=== PATIENT | male | born 1965 | race Caucasian/White ===

== ENCOUNTER → 2024-06-24 11:54 | Outpatient (REF) | payer BC, SELFPAY | LOC: HWRAD 11:54 | PROVIDERS: ATTENDING PHYSICIAN Family Medicine | DX: J45.909 Unspecified asthma, uncomplicated (principal); R05.9 Cough, unspecified; R93.89 Abnormal findings on diagnostic imaging of other specified body structures | CPT/HCPCS: 71046 ==

== ENCOUNTER 2024-06-26 19:35 | Emergency (ER) | payer BC, SELFPAY ==
[2024-06-26 19:38] VITALS: BP 169/84
[2024-06-26] MEDS: KEFLEX 500 MG PO (21:13)
[2024-06-26] MEDS: BACTRIM DS 800 MG/160 MG 2 TABLET PO (21:13)
[2024-06-26 21:32] LABS: Body Fluid Mononuclear 15.1 %; Body Fluid Polymorphonuclear 84.9 %; Body Fluid WBC 6955 /CUMM
[2024-06-26 21:40] VITALS: BP 176/111
[2024-06-26 21:40] LABS: Body Fluid Second Tech FB
--- NOTE | 2024-06-26 21:40 | ED.GENMED ---
History of Present Illness
General
Chief Complaint: Skin Problem
Source: patient
Exam Limitations: none
Time Seen by Provider: 06/26/24 20:20
Nursing documentation reviewed up to this point in time: agreed with
History of Present Illness
History of Present Illness:
58-year-old male presenting to the emergency department today with concerns of right-sided elbow redness swelling and discomfort over the past day or 2. He claims that he fell asleep with his right elbow pressing again something in his car 4 days
ago was seen by urgent care was started on Motrin and told to follow-up for this. Noticed increasing redness and swelling to the area today. The front to come to the ER. Denies any specific fevers. Able to range the elbow normally.
Review of Systems
Review of Systems
Allergies reviewed?: Yes
All Other Systems: ROS reviewed and negative except as documented in HPI and ROS
Phy Exam
Physical Exam
Physical Exam:
GENERAL: Alert , in no apparent distress
EYE: pupils equal and reactive
NECK: Supple, no significant adenopathy.
ENT: o/p clr, mmm.
CARDIAC: Regular rate and rhythm .
LUNGS: Clear breath sounds bilaterally, no acute respiratory distress, no wheezes/rales/rhonchi
ABDOMEN: Soft, without focal tenderness, no r/g, no cvat
NEUROLOGICAL: Alert and oriented, no focal neuro deficits
SKIN: Warm and dry, skin intact.
MUSCULOSKELETAL: Swelling redness as well as tenderness palpation to the right olecranon but otherwise good range of motion of the elbow., well perfused.
PSYCH: Normal and appropriate interaction.
Course
Orders/Labs/Results
Orders:
Orders
06/26/24 20:54
Cephalexin Monohydrate [Keflex] 500 mg PO NOW STA
Sulfamethox./Trimethoprim Ds [Bactrim Ds 800 mg/160 mg] 2 tablet PO NOW STA
06/26/24 21:00
Body Fluid Cell Count Urgent
What is the Body Fluid: right olecranon bursa
Date Specimen was Collected: 06/26/24
Time Specimen was Collected: 20:42
Body Fluid Crystals Urgent
What is the Body Fluid: right olecranon bursa
Date Specimen was Collected: 06/26/24
Time Specimen was Collected: 20:42
Fluid Culture with Gram Stain Urgent
SELVIN Source: Bursa
Specimen Description:
Date Specimen was Collected: 06/26/24
Time Specimen was Collected: 20:42
Vital Signs
Initial and Last Documented VS:
Initial Vital Signs
Temp Pulse Resp BP Pulse Ox
98.4 F 79 16 169/84 98
06/26/24 19:38 06/26/24 19:38 06/26/24 19:38 06/26/24 19:38 06/26/24 19:38
Last Documented Vital Signs
Temp Pulse Resp BP Pulse Ox
98.4 F 68 18 176/111 98
06/26/24 19:38 06/26/24 21:52 06/26/24 21:52 06/26/24 21:52 06/26/24 21:52
Procedures
Incision/Drainage/Joint Aspiration
Right Elbow:
Anethesia: 1% Lidocaine
Preparation: cleaned with Betadine
Type of procedure: aspiration
Nature of site: other (Olecranon bursa)
Description of abscess: less than 3cm
Loculations broken up: No
How much fluid was obtained?: number in mls (9)
Fluid description: yellowish
Treatment: antibiotics started and bandaid applied
MDM/Problems Addressed
MDM/Problems Addressed:
58-year-old male presenting to the emergency department today with concerns of redness swelling warmth to the right olecranon. Worsening over the past 4 days. Denies any systemic symptoms. On arrival blood pressure elevated otherwise vital signs
are normal. Denies any history of immunosuppression. No specific trauma to the elbow. The olecranon was drained with yellow fluid sent for crystals cell count culture and Gram stain. Otherwise patient well-appearing started on antibiotics
otherwise will follow-up with orthopedics. Return given. No evidence of septic elbow considering good range of motion and general well appearance
Of note the patient was found to have an elevated blood pressure. He claims that he was uncomfortable throughout the ER stay and he will keep an eye on his blood pressure over the next few days. He does not have any symptoms of hypertensive
emergency at this time.
*Critical Care Note
Total Time (30-74mins, 75-104mins- exclusive of procedures): Not Applicable
ED Attending Note
-
Portions of this chart may have been created with voice recognition software.� Occasional wrong word or��sound alike� substitutions may have occurred due to the inherent limitations of voice recognition software.
Discharge Plan
Departure
Patient Disposition: Home (Routine Discharge)
Date of Disposition: 06/26/24
Time of Disposition: 21:45
Patient with high blood pressure during this ER visit?: No
Condition: Good
Covid-19: Not Applicable
Discharge Problem:
Septic olecranon bursitis of right elbow
Instructions: Olecranon Bursitis (DC)
Prescriptions:
New
sulfamethoxazole-trimethoprim [Bactrim DS] 800-160 mg tablet
1 tab PO BID 7 Days Qty: 14 0RF
cephalexin 500 mg capsule
500 mg PO QID 7 Days Qty: 28 0RF
No Action
budesonide-formoterol [Symbicort] 160-4.5 mcg/actuation Hfa Aerosol Inhaler
1 inh INHALATION ONCE
Xolair 150 mg/mL Syringe
150 mg SC Q4W
Referrals:
Mansoor Morgan MD [Active] - Follow up in 5-7 days
Micky Hook MD [Family Provider] -
Activity Restrictions/Additional Instructions:
You came to the emergency department today with concerns of swelling and redness to your right elbow. This appears to be consistent with a septic olecranon bursitis. Please take the prescribed antibiotics and follow-up closely with orthopedics for
further assessment. Return to the emergency department for any worsening, new or concerning symptoms.
Interventions
Interventions:
*Risk Screen - Suicide Last Done: 06/26/24 19:38
*General Assessment Last Done: 06/26/24 21:15
*Neglect/Abuse Screening Last Done: 06/26/24 19:38
*Nursing Disposition Last Done: 06/26/24 21:52
ED-Skin Assessment Last Done: 06/26/24 21:52
Discharge Date and Time
Discharge Date/Time: 06/26/24 21:53
Print Language: MACEDONIAN
[2024-06-26 21:52] VITALS: BP 176/111
== END 2024-06-26 21:53 | disposition home or self-care (01) ==
LOC: EMR 19:35
PROVIDERS: Physician Assistant; EMERGENCY PHYSICIAN Emergency Medicine; FAMILY PHYSICIAN Family Medicine
DX: M70.21 Olecranon bursitis, right elbow (principal)
CPT/HCPCS: 20605; 99283; 87015; 87070; 87205; 89051; 89060

== ENCOUNTER → 2024-08-07 07:35 | Outpatient (REF) | payer BC, SELFPAY | LOC: HWRAD 07:35 | PROVIDERS: ATTENDING PHYSICIAN Internal Medicine Critical Care Medicine; FAMILY PHYSICIAN Physician Assistant Medical | DX: J84.9 Interstitial pulmonary disease, unspecified (principal); R06.09 Other forms of dyspnea | CPT/HCPCS: 71250 ==

== ENCOUNTER → 2024-12-11 08:03 | Outpatient (REF) | payer BC, SELFPAY | LOC: HWRAD 08:03 | PROVIDERS: ATTENDING PHYSICIAN Internal Medicine Critical Care Medicine; FAMILY PHYSICIAN Family Medicine | DX: J47.9 Bronchiectasis, uncomplicated (principal) | CPT/HCPCS: 71250 ==